=== PATIENT | male | born 2000 | race Caucasian/White ===

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

== ENCOUNTER 2021-05-02 21:56 | Emergency (ER) | payer OTHER ==
[2021-05-02 22:06] VITALS: BP 135/92; PULSE 123; BMI 30.4
[2021-05-02] MEDS ORDERED: ACETAMINOPHEN 500 MG TABLET (FP) PO ONE ×2 (22:22→22:26)
[2021-05-02] MEDS ORDERED: ACETAMINOPHEN 500 MG TABLET (FP) ONE (22:30)
[2021-05-02 23:40] VITALS: TEMP 100.3
[2021-05-03] MEDS ORDERED: AZITHROMYCIN 500 MG TABLET PO ONE (00:33)
[2021-05-03] MEDS ORDERED: AZITHROMYCIN 250 MG TABLET ONE (00:39)
[2021-05-04 12:10] LABS: SARS-CoV-2 NAA Not Detected (Not Detected)
== END 2021-05-03 00:45 | disposition home or self-care (01) ==
LOC: FER 21:56
DX: J02.9 Acute pharyngitis, unspecified (principal); Z11.52 Encounter for screening for COVID-19
CPT/HCPCS: 87880; 99283-25; C9803; U0003; U0005

== ENCOUNTER 2023-07-30 22:12 | Emergency (ER) | payer OTHER ==
[2023-07-30 22:19] VITALS: BP 145/80; PULSE 88; RESP 16; TEMP 99.1; BMI 32.6
[2023-07-30] MEDS ORDERED: SULFAMETHOXAZOLE/TRIMETHOPRIM 800MG/160MG D.S. TABLET ONE (22:48)
[2023-07-30] MEDS ORDERED: DIPHTH,PERTUSS(ACELL),TET 0.5 ML DISP.SYRIN IM ONE ×2 (22:48→22:53)
[2023-07-30] MEDS ORDERED: SULFAMETHOXAZOLE/TRIMETHOPRIM 800MG/160MG D.S. TABLET PO ONE (22:53)
== END 2023-07-30 23:01 | disposition home or self-care (01) ==
LOC: FER 22:12
PROC: 3E0234Z Introduction of Serum, Toxoid and Vaccine into Muscle, Percutaneous Approach (ICD-10-PCS; principal; 2023-07-30)
DX: S51.831A Puncture wound without foreign body of right forearm, initial encounter (principal); W45.0XXA Nail entering through skin, initial encounter
CPT/HCPCS: 90715; 99283-25